=== PATIENT | male | born 1980 | race Caucasian/White ===

== ENCOUNTER 2022-04-29 17:15 | Outpatient (CLI) | payer BC, SELFPAY ==
[2022-04-29 22:11] LABS: Chloride* 100 mmol/L (96-114)
[2022-04-29 22:12] LABS: Potassium* 4.4 mmol/L (3.6-5.1); Sodium* 139 mmol/L (135-149)
[2022-04-29 22:14] LABS: Aspartate Amino Transferase* 24 U/L (12-35); Bilirubin Total* 0.4 mg/dL (0.1-1.5); Blood Urea Nitrogen* 16 mg/dL (5-24); Carbon Dioxide* 28 mmol/L (20-32); Cholesterol* 289 mg/dL (90-199); Creatinine* 0.7 mg/dL (0.5-1.5); Estimated Glomerular Filt Rate 118 ml/min; Glucose* 84 mg/dL (60-115); Total Protein* 7.9 g/dL (6.0-8.3)
[2022-04-29 22:15] LABS: Alanine Aminotransferase* 23 U/L (4-50); Alkaline Phosphatase* 108 U/L (40-150); Calcium* 9.7 mg/dL (8.4-10.6); HDL Cholesterol* 56 mg/dL (>=40); LDL Cholesterol Calculated 130 mg/dL (<100)
[2022-04-29 22:18] LABS: Triglycerides* 517 mg/dL (40-149)
[2022-04-29 22:50] LABS: Creatinine Urine 45.7 mg/dL
[2022-04-29 23:02] LABS: Microalbumin Creatinine Ratio 20 mg/g (0-30); Microalbumin Urine < 1 mg/dL
[2022-04-29 23:28] LABS: Hepatitis C Virus Antibody* Negative (Negative)
== END 2022-04-29 17:16 | disposition home or self-care (01) ==
PROVIDERS: PCP Family Medicine; Visit Provider Family Medicine
DX: Z00.00 Encounter for general adult medical examination without abnormal findings (principal); E78.5 Hyperlipidemia, unspecified; I10 Essential (primary) hypertension; F41.9 Anxiety disorder, unspecified; Z11.59 Encounter for screening for other viral diseases
CPT/HCPCS: 80053; 80061; 82043; 82570; 86803

== ENCOUNTER 2024-05-27 08:51 | Outpatient (CLI) | payer BC, SELFPAY | END 2024-05-27 08:52 | disposition home or self-care (01) | PROVIDERS: PCP Family Medicine; Visit Provider Family Medicine | DX: I10 Essential (primary) hypertension (principal); E78.5 Hyperlipidemia, unspecified; E78.1 Pure hyperglyceridemia | CPT/HCPCS: 80053; 80061; 82043; 82570 ==

== ENCOUNTER 2025-02-16 16:15 | Outpatient (RCR) | payer BC, SELFPAY | END 2025-05-31 08:57 | disposition home or self-care (01) | PROVIDERS: PCP Family Medicine; Visit Provider Physician Assistant Surgical | DX: Z48.89 Encounter for other specified surgical aftercare (principal); Z51.89 Encounter for other specified aftercare | CPT/HCPCS: 97110; 97140; 97161 ==